=== PATIENT | male | born 1985 | race American Indian/Alaskan Native ===

== ENCOUNTER 2017-04-02 13:41 | Emergency (ER) | payer SELFPAY ==
[2017-04-02 13:56] VITALS: BP 152/93
--- NOTE | 2017-04-02 14:32 | Emergency Department Report ---
ED Lower Extremity HPI - General Chief Complaint: Extremity Injury, Lower Stated Complaint: LEFT ANKLE/SWOLLEN THROAT Time Seen by Provider: 04/02/17 14:13 Source: patient Mode of arrival: Ambulatory Limitations: No Limitations - History of Present Illness Initial Comments: 31-year-old male past medical history none presents with complaint of one week of intermittent pain and swelling to left lateral ankle region. Patient states that it makes walking painful. Denies any specific trauma. Pt states he may have felt a pop in his left foot this week while at work. reports swelling on lateral aspect of left foot. MD Complaint: ankle injury, foot injury Onset/Timin -: week(s) Injury: Foot: Left (left lateral foot pain) Place: home Severity: moderate Severity scale (0 -10): 6 Improves With: nothing Worsens With: nothing Associated Symptoms: snap/pop sensation, swelling, ambulatory - Related Data Previous Rx's Medication Instructions Recorded Last Taken Type Acetaminophen/Codeine [Tylenol 1 tab PO Q6H PRN #12 tab 04/02/17 Unknown Rx /Codeine # 3 tab] Naproxen [Naprosyn TAB] 500 mg PO BID PRN #30 tablet 04/02/17 Unknown Rx Allergies Allergy/AdvReac Type Severity Reaction Status Date / Time No Known Allergies Allergy Verified 04/02/17 13:51 ED Review of Systems ROS: Stated complaint: LEFT ANKLE/SWOLLEN THROAT Other details as noted in HPI Constitutional: denies: chills, fever Eyes: denies: eye pain, eye discharge, vision change ENT: denies: ear pain, throat pain Respiratory: denies: cough, shortness of breath, wheezing Cardiovascular: denies: chest pain, palpitations Endocrine: no symptoms reported Gastrointestinal: denies: abdominal pain, nausea, diarrhea Genitourinary: denies: urgency, dysuria Musculoskeletal: as per HPI (1 week of left lateral foot pain). denies: back pain, joint swelling, arthralgia Skin: denies: rash, lesions Neurological: denies: headache, weakness, paresthesias Psychiatric: denies: anxiety, depression Hematological/Lymphatic: denies: easy bleeding, easy bruising ED Past Medical Hx - Past Medical History Previous Medical History?: No - Surgical History Past Surgical History?: No - Social History Smoking Status: Never Smoker Substance Use Type: None - Medications Home Medications: Home Medications Medication Instructions Recorded Confirmed Last Taken Type Acetaminophen/Codeine [Tylenol 1 tab PO Q6H PRN #12 tab 04/02/17 Unknown Rx /Codeine # 3 tab] Naproxen [Naprosyn TAB] 500 mg PO BID PRN #30 tablet 04/02/17 Unknown Rx ED Physical Exam - General Limitations: No Limitations General appearance: alert, in no apparent distress - Head Head exam: Present: atraumatic, normocephalic - Eye Eye exam: Present: normal appearance, PERRL, EOMI - ENT ENT exam: Present: mucous membranes moist - Neck Neck exam: Present: normal inspection - Respiratory Respiratory exam: Present: normal lung sounds bilaterally. Absent: respiratory distress - Cardiovascular Cardiovascular Exam: Present: regular rate, normal rhythm. Absent: systolic murmur, diastolic murmur, rubs, gallop - GI/Abdominal GI/Abdominal exam: Present: soft, normal bowel sounds - Rectal Rectal exam: Present: deferred - Extremities Exam Extremities exam: Present: normal inspection - Expanded Lower Extremity Exam Left Lower Leg exam: Present: normal inspection, full ROM Ankle exam: Present: normal inspection, full ROM Foot/Toe exam: Present: tenderness, tenderness at base of 5th metatarsal Neuro vascular tendon exam: Present: no vascular compromise (distal DT and PT pulses intact) Gait: Positive: antalgic 1 - pain on palpation here - Back Exam Back exam: Present: normal inspection, full ROM - Neurological Exam Neurological exam: Present: alert, oriented X3, CN II-XII intact, normal gait - Psychiatric Psychiatric exam: Present: normal affect, normal mood - Skin Skin exam: Present: warm, dry, intact, normal color. Absent: rash ED Course Vital Signs 04/02/17 04/02/17 13:53 16:16 Temperature 98.6 F Pulse Rate 82 60 Respiratory 17 18 Rate Blood Pressure 152/93 O2 Sat by Pulse 98 100 Oximetry ED Lower Extremity MDM - Medical Decision Making A/P: Left ankle pain, Ramírez fracture left fifth metatarsal 1-patient placed in posterior foot splint LLE, post orthopedic shoe, given crutches 2-referred to podiatry and orthopedics for follow-up 3-nonweightbearing for now 4- naproxen and Tylenol No. 3 when necessary 5-I explained tot he pt the importance of ortho/podiatry f/u, pt stated he would call to make appts for this week SMITHA 6- distal sensation on pulses in foot intact on clincial exam Critical care attestation.: If time is entered above; I have spent that time in minutes in the direct care of this critically ill patient, excluding procedure time. ED Disposition Clinical Impression: Closed metaphyseal fracture of fifth metatarsal bone of left foot Left ankle pain Qualifiers: Chronicity: acute Qualified Code(s): M25.572 - Pain in left ankle and joints of left foot Disposition: TO HOME OR SELFCARE Is pt being admited?: No Does the pt Need Aspirin: No Condition: Stable Instructions: Crutch Instructions (ED), Foot Fracture in Adults (ED), Splint Care (ED) Prescriptions: Acetaminophen/Codeine [Tylenol /Codeine # 3 tab] 1 tab PO Q6H PRN #12 tab PRN Reason: Pain Naproxen [Naprosyn TAB] 500 mg PO BID PRN #30 tablet PRN Reason: Pain Referrals: LI SCHAFFER MD [Staff Physician] - 3-5 Days RONNIE SIMPSON DPM [Staff Physician] - 3-5 Days Forms: Work/School Release Form(ED) Time of Disposition: 16:05
[2017-04-02] MEDS ORDERED: MOTRIN PO ONE (14:54)
--- NOTE | 2017-04-02 14:54 | XRay Report ---
FINAL REPORT PROCEDURE: XR FOOT 3+V LT TECHNIQUE: Three views of the left foot are obtained HISTORY: pain 5th metatarsal region COMPARISON: No prior studies are available for comparison. FINDINGS: Possible longitudinal fracture is seen in the medial cortex of the distal shaft of the 5th metatarsal. No arthritic changes are seen. Soft tissue swelling is seen in the forefoot being greatest left laterally. IMPRESSION: Possible nondisplaced longitudinal fracture is seen in the medial cortex of the distal shaft of the 5th metatarsal.
--- NOTE | 2017-04-02 15:22 | XRay Report ---
FINAL REPORT PROCEDURE: XR ANKLE 3+V LT TECHNIQUE: Three views of the left ankle are obtained HISTORY: LEFT ANKLE PAIN / SWELLING COMPARISON: No prior studies are available for comparison. FINDINGS: Soft tissue swelling is seen diffusely. Mild arthritic changes are seen in the ankle. No fracture or dislocation is seen. IMPRESSION: Soft tissue swelling is seen with mild arthritic changes.
== END 2017-04-02 16:16 | disposition home or self-care (01) ==
LOC: ED 13:41
DX: S92.352A Displaced fracture of fifth metatarsal bone, left foot, initial encounter for closed fracture (principal); M25.572 Pain in left ankle and joints of left foot; X58.XXXA Exposure to other specified factors, initial encounter; Y93.89 Activity, other specified; Y99.9 Unspecified external cause status; Y92.89 Other specified places as the place of occurrence of the external cause

== ENCOUNTER 2018-04-04 23:40 | Emergency (ER) | payer BC ==
[2018-04-05 01:05] LABS: Basophils # (Auto) 0.1 K/mm3 (0.0-0.1); Basophils % (Auto) 1.2 % (0.0-1.8); Eosinophils # (Auto) 0.2 K/mm3 (0.0-0.4); Eosinophils % (Auto) 3.3 % (0.0-4.3); Hematocrit 43.4 % (35.5-45.6); Hemoglobin 14.7 gm/dl (11.8-15.2); Lymphocytes # (Auto) 2.7 K/mm3 (1.2-5.4); Lymphocytes % (Auto) 37.6 % (13.4-35.0); Mean Corpuscular HGB Conc 34 % (32-34); Mean Corpuscular Hemoglobin 31 pg (28-32); Mean Corpuscular Volume 90 fl (84-94); Monocytes # (Auto) 0.6 K/mm3 (0.0-0.8); Monocytes % (Auto) 7.7 % (0.0-7.3); Platelet Count 216 K/mm3 (140-440); Red Blood Count 4.83 M/mm3 (3.65-5.03); Red Cell Distribution Width 13.5 % (13.2-15.2)
[2018-04-05 01:21] LABS: BUN/Creatinine Ratio 11; Blood Urea Nitrogen 10 mg/dL (9-20); Calcium 9.5 mg/dL (8.4-10.2); Hemolysis Index 54
--- NOTE | 2018-04-05 01:59 | XRay Report ---
FINAL REPORT EXAM: XR CHEST ROUTINE 2V HISTORY: Shortness of breath TECHNIQUE: 2 views of the chest. PRIORS: None. FINDINGS: The cardiomediastinal silhouette appears normal. The lungs are clear. The bones and soft tissues are unremarkable. IMPRESSION: No evidence of acute cardiopulmonary disease
== END 2018-04-05 00:52 | disposition left against medical advice (07) ==
LOC: ED 23:40
DX: R06.02 Shortness of breath (principal); Z53.21 Procedure and treatment not carried out due to patient leaving prior to being seen by health care provider
CPT/HCPCS: 36415; 71046; 80048; 85025